=== PATIENT | female | born 1945 | race Two or more races ===

== ENCOUNTER 2023-04-04 23:28 | Emergency (ER) | payer OTHER ==
[~2023-04-04] VITALS: Ht 152.4 cm; Wt 71.7 kg
[2023-04-04] MEDS ORDERED: SIMVASTATIN5 MG PO (23:53)
[2023-04-04] MEDS ORDERED: GLUMETZA500 MG PO (23:53)
[2023-04-04] MEDS ORDERED: LEVOTHYROXINE25 MCG PO (23:53)
[2023-04-04] MEDS ORDERED: SINGULAIR4 M1 (23:53)
[2023-04-05] MEDS ORDERED: DIOVAN320 MG PO (00:50)
== END 2023-04-05 03:20 ==
LOC: ER 23:28
DX: J45.901 Unspecified asthma with (acute) exacerbation (principal); K57.92 Diverticulitis of intestine, part unspecified, without perforation or abscess without bleeding; I10 Essential (primary) hypertension; E03.9 Hypothyroidism, unspecified
CPT/HCPCS: 94640; 96372; 99284; J2930